=== PATIENT | male | born 2000 | race Caucasian/White ===

== ENCOUNTER 2021-03-15 16:16 | Emergency (ER) | payer BC ==
[~2021-03-15] VITALS: Ht 172.7 cm; Wt 72.6 kg
[2021-03-15] MEDS ORDERED: IBUPROFEN200 MG PO (18:42)
== END 2021-03-15 19:14 | disposition home or self-care (01) ==
LOC: EMR PED 16:16 → ER 16:16 → EMR PED 17:13
DX: S99.921A Unspecified injury of right foot, initial encounter (principal); X58.XXXA Exposure to other specified factors, initial encounter